=== PATIENT | male | born 1995 | race American Indian/Alaskan Native ===

== ENCOUNTER 2020-12-16 12:14 | Emergency (ER) | payer SELFPAY ==
[2020-12-16 12:21] VITALS: BP 133/86
--- NOTE | 2020-12-16 16:28 | Emergency Department Report ---
ED General Adult HPI - General Chief complaint: Arrhythmia/Palpitations Stated complaint: HEART RACING Time Seen by Provider: 12/16/20 13:02 Source: patient Mode of arrival: Ambulatory Limitations: No Limitations - History of Present Illness Initial comments: 25-year-old -Al[place] male patient presents with complaints of racing heart rate today. He states history of mildly elevated heart rate that usually is from 100-1 10. He states he noticed his heart rate was climbing to around 125 after working out today. 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 He denies any e nergy drinks or workout supplements, shortness of breath, cough, leg pain, history of DVT/PE, or abdominal pain. No fever/chills/sweats per patient. He does admit to intermittent leg swelling over the past year, and noticed some new leg swelling in the past 2 days. No hemoptysis per patient or history of cancer -: Sudden - Related Data Allergies Allergy/AdvReac Type Severity Reaction Status Date / Time No Known Allergies Allergy Unverified 12/16/20 12:18 ED Review of Systems ROS: Stated complaint: HEART RACING Other details as noted in HPI Constitutional: denies: chills, diaphoresis, fever, malaise Respiratory: denies: cough, shortness of breath Cardiovascular: as per HPI, other (Chest tightness, mild). denies: syncope Gastrointestinal: denies: abdominal pain Skin: denies: change in color Neurological: denies: headache ED Past Medical Hx - Past Medical History Previous Medical History?: No - Surgical History Past Surgical History?: No - Social History Smoking Status: Never Smoker Substance Use Type: None ED Physical Exam - General Limitations: No Limitations General appearance: alert, in no apparent distress, obese - Head Head exam: Present: atraumatic, normocephalic - Eye Eye exam: Present: normal appearance. Absent: scleral icterus - Neck Neck exam: Present: normal inspection - Respiratory Respiratory exam: Present: normal lung sounds bilaterally. Absent: respiratory distress - Cardiovascular Cardiovascular Exam: Present: regular rate, normal rhythm. Absent: systolic murmur, diastolic murmur, rubs, gallop - GI/Abdominal GI/Abdominal exam: Present: soft. Absent: tenderness - Extremities Exam Extremities exam: Absent: calf tenderness - Neurological Exam Neurological exam: Present: alert, oriented X3, normal gait - Psychiatric Psychiatric exam: Present: normal affect, normal mood - Skin Skin exam: Present: warm, dry, intact, normal color. Absent: rash ED Course Vital Signs 12/16/20 12:19 Temperature 98.4 F Pulse Rate 108 H Respiratory 20 Rate Blood Pressure 133/86 O2 Sat by Pulse 97 Oximetry ED Medical Decision Making - Lab Data Result diagrams: 12/16/20 16:29 12/16/20 16:29 Lab Results 12/16/20 12/16/20 12/16/20 Range/Units 16:29 16: 16:29 WBC 9.9 (4.5-11.0) K/mm3 RBC 5.71 H (3.65-5.03) M/mm3 Hgb 14.9 (11.8-15.2) gm/dl Hct 47.1 H (35.5-45.6) % MCV 83 L (84-94) fl MCH 26 L (28-32) pg MCHC 32 (32-34) % RDW 15.8 H (13.2-15.2) % Plt Count 372 (140-440) K/mm3 Lymph % (Auto) 26.7 (13.4-35.0) % Colbert % (Auto) 6.5 (0.0-7.3) % Eos % (Auto) 4.5 H (0.0-4.3) % Baso % (Auto) 0.5 (0.0-1.8) % Lymph # (Auto) 2.6 (1.2-5.4) K/mm3 Colbert # (Auto) 0.6 (0.0-0.8) K/mm3 Eos # (Auto) 0.4 (0.0-0.4) K/mm3 Baso # (Auto) 0.0 (0.0-0.1) K/mm3 Seg Neutrophils % 61.8 (40.0-70.0) % Seg Neutrophils # 6.1 (1.8-7.7) K/mm3 D-Dimer 471.34 H (0-234) ng/mlDDU Sodium 136 L (137-145) mmol/L Potassium 4.7 (3.6-5.0) mmol/L Chloride 100.6 (98-107) mmol/L Carbon Dioxide 25 (22-30) mmol/L Anion Gap 15 mmol/L BUN 10 (9-20) mg/dL Creatinine 0.7 L (0.8-1.3) mg/dL Estimated GFR > 60 ml/min BUN/Creatinine Ratio 14 % Glucose 78 (75-100) mg/dL Calcium 9.2 (8.4-10.2) mg/dL Total Bilirubin 0.40 (0.1-1.2) mg/dL AST 18 (5-40) units/L ALT 15 (7-56) units/L Alkaline Phosphatase 56 (35-129) units/L Total Protein 8.1 (6.3-8.2) g/dL Albumin 4.1 (3.9-5) g/dL Albumin/Globulin Ratio 1.0 % - Radiology Data Radiology results: report reviewed CHEST 2 VIEWS INDICATION / CLINICAL INFORMATION: tachycardia. COMPARISON: None available. FINDINGS: SUPPORT DEVICES: None. HEART / MEDIASTINUM: No significant abnormality. LUNGS / PLEURA: No significant pulmonary or pleural abnormality. No pneumothorax. ADDITIONAL FINDINGS: No significant additional findings. IMPRESSION: 1. No acute findings. CT angio chest INDICATION / CLINICAL INFORMATION: tachy, chest tightness, + dimer 100ML of OMNIPAQUE 350 GIVEN. TECHNIQUE: Axial CT images were obtained after injection of 100 cc Omnipaque 350 IV contrast using CTA protocol. 3 plane MIP / 3D reconstructions were produced. All CT scans at this location are performed using CT dose reduction for ALARA by means of automated exposure control. COMPARISON: None available. FINDINGS: Following the administration of intravenous contrast, no defects are seen in the main pulmonary arteries or their branches. A small left pleural effusion is present with mild atelectasis. No enlarged mediastinal or hilar lymph nodes are identified. No significant skeletal abnormality is seen. IMPRESSION: 1. No evidence of pulmonary embolus 2. Very small left pleural effusion with mild atelectasis in the lung base laterally - Medical Decision Making 25-year-old -Al[place] male patient presents with complaints of racing heart rate today. He states history of mildly elevated heart rate that usually is from 100-1 10. He states he noticed his heart rate was climbing to around 125 after working out today. 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 He denies any energy drinks or workout supplements, shortness of breath, cough, leg pain, history of DVT/PE, or abdominal pain. No fever/chills/sweats per patient. He does admit to intermittent leg swelling over the past year, and noticed some new leg swelling in the past 2 days. No hemoptysis per patient or history of cancer Pulse ox noted to be 95% on room air with a heart rate around 98-105. With a mbulation, heart rate remains normal, however the pulse ox drops to 92% on room air. He continues to deny shortness of breath. Given patient's history, D- dimer was performed and it was positive. CTA of the chest is negative for any PE, however does show a mild left-sided pleural effusion and atelectasis. No significant abnormalities noted on CBC or CMP. Results discussed in detail with patient and importance of follow-up with PCP in 3 days discussed. Incentive spirometer provided to patient for home-nurse educated patient on usage. His vitals remain normal, he is well-appearing, he is stable for discharge home. Discussed in great detail signs and symptoms that should prompt immediate return to the emergency department in detail with patient who verbalizes understanding. Critical care attestation.: If time is entered above; I have spent that time in minutes in the direct care of this critically ill patient, excluding procedure time. ED Disposition Clinical Impression: Tachycardia, Chest tightness, Pleural effusion, left, Atelectasis of left lung Disposition: DC-01 TO HOME OR SELFCARE Is pt being admited?: No Condition: Stable Instructions: Nonspecific Chest Pain, Adult, Sinus Tachycardia, Atelectasis, A dult, Pleural Effusion Referrals: PETER ZAPATA MD [Staff Physician] - 2-3 Days [facility] [Provider Group] - 2-3 Days
[2020-12-16 16:37] LABS: Basophils % (Auto) 0.5 % (0.0-1.8); Eosinophils # (Auto) 0.4 K/mm3 (0.0-0.4); Eosinophils % (Auto) 4.5 % (0.0-4.3); Hematocrit 47.1 % (35.5-45.6); Hemoglobin 14.9 gm/dl (11.8-15.2); Lymphocytes # (Auto) 2.6 K/mm3 (1.2-5.4); Lymphocytes % (Auto) 26.7 % (13.4-35.0); Mean Corpuscular HGB Conc 32 % (32-34); Mean Corpuscular Volume 83 fl (84-94); Monocytes # (Auto) 0.6 K/mm3 (0.0-0.8); Monocytes % (Auto) 6.5 % (0.0-7.3); Platelet Count 372 K/mm3 (140-440); Red Blood Count 5.71 M/mm3 (3.65-5.03); Red Cell Distribution Width 15.8 % (13.2-15.2)
[2020-12-16 17:01] LABS: Alanine Aminotransferase 15 units/L (7-56); Albumin 4.1 g/dL (3.9-5); BUN/Creatinine Ratio 14; Blood Urea Nitrogen 10 mg/dL (9-20); Calcium 9.2 mg/dL (8.4-10.2); Hemolysis Index 94
--- NOTE | 2020-12-16 17:06 | XRay Report ---
CHEST 2 VIEWS INDICATION / CLINICAL INFORMATION: tachycardia. COMPARISON: None available. FINDINGS: SUPPORT DEVICES: None. HEART / MEDIASTINUM: No significant abnormality. LUNGS / PLEURA: No significant pulmonary or pleural abnormality. No pneumothorax. ADDITIONAL FINDINGS: No significant additional findings. IMPRESSION: 1. No acute findings. Signer Name: Chris Steiner MD Signed: 12/16/2020 5:01 PM Workstation Name: [id number]
--- NOTE | 2020-12-16 19:52 | Cat Scan Report ---
CT angio chest INDICATION / CLINICAL INFORMATION: tachy, chest tightness, + dimer 100ML of OMNIPAQUE 350 GIVEN. TECHNIQUE: Axial CT images were obtained after injection of 100 cc Omnipaque 350 IV contrast using CTA protocol. 3 plane MIP / 3D reconstructions were produced. All CT scans at this location are performed using CT dose reduction for ALARA by means of automated exposure control. COMPARISON: None available. FINDINGS: Following the administration of intravenous contrast, no defects are seen in the main pulmonary arter ies or their branches. A small left pleural effusion is present with mild atelectasis. No enlarged me diastinal or hilar lymph nodes are identified. No significant skeletal abnormality is seen. IMPRESSION: 1. No evidence of pulmonary embolus 2. Very small left pleural effusion with mild atelectasis in the lung base laterally Signer Name: Franklyn Nieves MD FACR Signed: 12/16/2020 7:48 PM Workstation Name: [id number]
--- NOTE | 2020-12-17 09:56 | Electrocardiograph Report ---
[facility] Test Date: 2020-12-16 Test Time: 12:25:27 Pat Name: MAILE SHER Department: Room: Gender: M [employer] Professor: FABBY : 1995 Requested By: ED DOC Order Number: [id number] Reading MD: Suleman Carmona Measurements Intervals [place] Rate: 105 P: 32 MN: 168 QRS: 76 QRSD: 72 T: 14 QT: 318 QTc: 420 Interpretive Statements Sinus tachycardia Probable left atrial enlargement non specific st-t No previous ECG available for comparison Electronically Signed On 12-17-2020 9:56:10 EDT by Suleman Carmona
== END 2020-12-16 16:00 | disposition home or self-care (01) ==
LOC: ED 12:14
DX: J90 Pleural effusion, not elsewhere classified (principal); J98.11 Atelectasis; Z79.899 Other long term (current) drug therapy
CPT/HCPCS: 36415; 71046; 71275; 80053; 85025; 85379; 93005; 99284; Q9967